=== PATIENT | female | born 1975 | race Caucasian/White ===

== ENCOUNTER 2018-04-01 23:47 | Inpatient (IN) ==
[2018-04-02] MEDS ORDERED: ACETAMINOPHEN 1000 MG/100 ML IV IV STA (00:10)
[2018-04-02] MEDS ORDERED: KETOROLAC TROMETHAMINE 15 MG/ML VIAL IV STA (00:10)
[2018-04-02] MEDS ORDERED: ONDANSETRON INJ 2 MG/ML 2 ML VIAL IV STA (00:10)
[2018-04-02] MEDS ORDERED: SODIUM CHLORIDE 0.9% 1000ML 1,000 ML IV SCH ×2 (00:15→02:00)
[2018-04-02 01:01] LABS: Basophils # (auto) 0.01 K/uL (0-0.2); Basophils % (auto) 0.1 %; Eosinophils # (auto) 0.06 K/uL (0-0.5); Eosinophils % (auto) 0.4 %; Hematocrit (blood only) 41.8 % (37-47); Hemoglobin 14.1 g/dL (12.0-16.0); Immature Granulocytes # (auto) 0.05 K/uL (0.00-0.02); Immature Granulocytes % (auto) 0.4 %; Lymphocytes # (auto) 0.97 K/uL (1.2-3.4); Mean Corpuscular Hgb Conc 33.7 g/dL (32-36); Mean Corpuscular Volume 95.9 fL (80-100); Mean Platelet Volume 9.5 fL (7.4-10.4); Monocytes # (auto) 1.25 K/uL (0.11-0.59); Neutrophils # (auto) 11.53 K/uL (1.4-6.5); Neutrophils % (auto) 83.1 %; Platelet Count 193 K/uL (130-400); RDW Coefficient of Variation 12.5 % (11.5-14.5); RDW Standard Deviation 43.9 fL (36.4-46.3); Red Blood Count 4.36 M/uL (4.2-5.4); White Blood Count 13.87 K/uL (4.8-10.8)
[2018-04-02 01:09] LABS: Appearance Urine Cloudy (Clear); Bacteria Urine Automated Negative (Negative); Bilirubin Urine Negative (Negative); Cast Urine Automated 0 /lpf (0-5); Color Urine Yellow; Epithelial Cell Urine Auto >30 /lpf (0-5); Glucose Urine UA Negative (Negative); Ketones Urine Negative (Negative); Leukocyte Esterase Urine Negative (Negative); Nitrite Urine Negative (Negative); Protein Urine Negative (Negative); Specific Gravity Urine 1.019 (1.000-1.030); Urobilinogen Urine Negative (Negative)
[2018-04-02 01:11] LABS: Partial Thromboplastin Time 25.2 Seconds (21.0-31.0); Prothrombin Time 10.4 Seconds (9.0-12.0)
[2018-04-02 01:19] LABS: Albumin Level 3.9 gm/dl (3.4-5.0); BUN Creatinine Ratio 10.2 (10-20); Calcium 9.2 mg/dl (8.5-10.1); Creatinine Clr Calc Pharmacy 104.2 ml/min; Est GFR (African American) 106.1; Est GFR (Non-African American) 91.6; Potassium 3.8 mmol/L (3.5-5.1)
[2018-04-02 01:22] LABS: Bilirubin,Total 0.4 mg/dl (0.2-1); Total Protein 7.9 gm/dl (6.4-8.2)
--- NOTE | 2018-04-02 04:08 | Emergency Department Note ---
History of Present Illness General Chief complaint: Fever Stated complaint: FEVER AND CHILLS/HAD SURGERY YESTERDAY Time Seen by Provider: 04/01/18 23:59 History of Present Illness Maximum Pain Intensity: 8 This is a 42-year-old female presenting to the emergency department with complaint of fever and generalized body aches for the past 12 hours. The patient states that she had a uterine ablation performed at the [facility] in [facility] yesterday. She evidently did very well after the procedure and was discharged home without any difficulty. The patient has been taking 800 mg ibuprofen tablets for pain control, but states that she has had a fever of 38 or 39 degrees for the past several hours. The patient is nauseated without vomiting. She does not have distinct point pain, and is describing more of a generalized pain. No difficulty breathing or using the bathroom is reported. The patient rates her overall discomfort a 7/10. Home Medications Home Medications Medication Instructions Recorded Confirmed Type Ashwaghanda Root 1 tab PO QAM 11/26/17 04/02/18 History acetaminophen [Tylenol Arthritis 1,300 mg PO QAM 11/26/17 04/02/18 History Pain] ascorbic acid-ascorbate sodium 500 mg PO QAM 11/26/17 04/02/18 History [Vitamin C With Zeynep Hips] biotin 1 mg PO QAM 11/26/17 04/02/18 History cholecalciferol (vitamin D3) 8,000 unit PO QAM 11/26/17 04/02/18 History [Vitamin D3] omega 2-vom-rar-fish oil [Fish Oil] 2,000 mg PO QAM 11/26/17 04/02/18 History Allergies Allergy/AdvReac Type Severity Reaction Status Date / Time hydrocodone AdvReac Intermediate NAUSEA Verified 04/02/18 01:11 codeine AdvReac Mild Nausea Verified 04/02/18 01:11 morphine AdvReac Unknown Unknown Verified 04/02/18 01:11 Past Med/Surg History Medical History Asthma EXERCISE INDUCED-HAS NOT USED PAST 6-12 MONTHS SOB (shortness of breath) ON OCC Anxiety Osteoarthritis HANDS/FEET 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 Strong teeth extracted Surgical History History of tonsillectomy History of esophagogastroduodenoscopy (EGD) one side History of colonoscopy Family History Unknown Family history of diabetes mellitus Father Family hx of colon cancer Social History Current Living Situation: Family and Other Feels Safe at Home: Yes Smoking Status: Current some day smoker Tobacco Type: cigarettes Cigarettes per Day: rare, social cigarette, heavier use 10+ years ago Hx Alcohol Use: Yes Alcohol type: beer Alcohol Intake Frequency: a few times a week Hx Substance Use: No Beliefs That Will Affect Care: None Visual Impairment: No Limitations Review of Systems A total of 10 systems reviewed and were otherwise negative Physical Exam Vital Signs Vital Signs - 24 hr 04/01/18 23:53 04/02/18 00:17 04/02/18 00:26 Temperature 38.1 C H Temperature Source Oral Sepsis Recent Fever Within 48 Hours Yes Sepsis Action Taken by Nursing No Action Required Pulse Rate 125 H 115 H 118 H Respiratory Rate 18 32 H 26 H Respiratory Effort / Characteristics Non-Labored Spontaneous Respiratory Depth Normal Respiratory Pattern Regular Blood Pressure 157/100 H 131/92 Blood Pressure Mean 119 105 Blood Pressure Position Sitting Pulse Oximetry 97 96 98 Oxygen Delivery Method Room Air Room Air 04/02/18 00:30 04/02/18 00:40 04/02/18 01:00 Temperature Temperature Source Sepsis Recent Fever Within 48 Hours Sepsis Action Taken by Nursing Pulse Rate 110 H 115 H 119 H Respiratory Rate 31 H 35 H 32 H Respiratory Effort / Characteristics Respiratory Depth Respiratory Pattern Blood Pressure 134/79 Blood Pressure Mean 97 Blood Pressure Position Pulse Oximetry 98 Oxygen Delivery Method 04/02/18 01:34 04/02/18 01:40 04/02/18 02:00 Temperature Temperature Source Sepsis Recent Fever Within 48 Hours Sepsis Action Taken by Nursing Pulse Rate 168 H 112 H 107 H Respiratory Rate 30 H 26 H Respiratory Effort / Characteristics Respiratory Depth Respiratory Pattern Blood Pressure 119/65 Blood Pressure Mean 83 Blood Pressure Position Pulse Oximetry 95 96 Oxygen Delivery Method Room Air 04/02/18 02:20 04/02/18 02:44 04/02/18 03:00 Temperature 37.3 C Temperature Source Sepsis Recent Fever Within 48 Hours Sepsis Action Taken by Nursing Pulse Rate 108 H 112 H 105 H Respiratory Rate 20 20 22 Respiratory Effort / Characteristics Respiratory Depth Respiratory Pattern Blood Pressure 106/61 Blood Pressure Mean 76 Blood Pressure Position Pulse Oximetry 94 96 94 Oxygen Delivery Method 04/02/18 03:20 04/02/18 03:30 04/02/18 03:40 Temperature Temperature Source Sepsis Recent Fever Within 48 Hours Sepsis Action Taken by Nursing Pulse Rate 107 H 107 H 115 H Respiratory Rate 20 22 22 Respiratory Effort / Characteristics Respiratory Depth Respiratory Pattern Blood Pressure 99/59 L Blood Pressure Mean 72 Blood Pressure Position Pulse Oximetry 93 94 Oxygen Delivery Method Room Air VITALS: Vitals are noted on the nurse's note and reviewed by myself. Vital signs with tachycardia and fever GENERAL: White female who appears ill on examination. She is answering questions appropriately. HEAD: Normocephalic atraumatic. EYES: Pupils equal round and reactive to light and accommodation. Conjunctivae without injection, sclerae without icterus. Extraocular movements intact. NOSE: Patent, turbinates without inflammation or discharge. MOUTH: Mucous membranes moist. Tonsils are not enlarged. Pharynx without erythema, blood, or exudate. Uvula midline. Airway patent. NECK: Supple without nuchal rigidity. No lymphadenopathy. No thyromegaly. Cervical spine is nontender. HEART: Regular rate and rhythm without murmurs gallops or rubs. LUNGS: Clear to auscultation bilaterally without wheezes, rales or rhonchi. No retractions or accessory muscle use. ABDOMEN: Positive normal bowel sounds x 4. Soft, nontender, without masses or organomegaly. No guarding or rebound tenderness. MUSCULOSKELETAL: No muscle atrophy, erythema, or edema noted. Full range of motion in all extremities. NEURO: Patient was alert and oriented to person place and time. CN II through XII grossly intact. SKIN: The skin was without rashes, erythema, edema, or bruising. Capillary refill less than 2 seconds. Course Administered Medications Discontinued Medications Acetaminophen (Ofirmev) 1,000 mg IV NOW STA Stop: 04/02/18 00:11 Last Admin: 04/02/18 01:07 Dose: 1,000 mg Sodium Chloride (Nss 1000ml) 1,000 mls @ 999 mls/hr IV .Q1H1M KENY Stop: 04/02/18 01:15 Last Infusion: 04/02/18 01:57 Dose: 0 mls/hr Admin: 04/02/18 01:04 Dose: 999 mls/hr Sodium Chloride (Nss 1000ml) 1,000 mls @ 999 mls/hr IV .Q1H1M KENY Stop: 04/02/18 03:00 Last Infusion: 04/02/18 03:00 Dose: 0 mls/hr Admin: 04/02/18 01:57 Dose: 999 mls/hr Ketorolac Tromethamine (Toradol) 15 mg IV NOW STA Stop: 04/02/18 00:11 Last Admin: 04/02/18 01:04 Dose: 15 mg Ondansetron HCl (Zofran) 4 mg IV NOW STA Stop: 04/02/18 00:11 Last Admin: 04/02/18 01:06 Dose: 4 mg Medical Decision Making Differential Diagnosis Differential diagnosis: Etiologies such as postoperative infection, endometritis, abscess, viral syndrome, otitis, pharyngitis, pneumonia, influenza, meningitis, urinary tract infection, septic arthritis, soft tissue infectious process, intra-abdominal process, sepsis, bacteremia, as well as others were entertained. Laboratory Data Result diagrams: 04/02/18 00:50 04/02/18 00:50 Lab Results 04/02/18 04/02/18 04/02/18 Range/Units 00:22 00:48 00:50 WBC 13.87 H (4.8-10.8) K/uL RBC 4.36 (4.2-5.4) M/uL Hgb 14.1 (12.0-16.0) g/dL Hct 41.8 (37-47) % MCV 95.9 (80-100) fL MCH 32.3 (25-34) pg MCHC 33.7 (32-36) g/dL RDW Std Deviation 43.9 (36.4-46.3) fL RDW Coeff of Michael 12.5 (11.5-14.5) % Plt Count 193 (130-400) K/uL MPV 9.5 (7.4-10.4) fL Immature Gran % (Auto) 0.4 % Neut % (Auto) 83.1 % Lymph % (Auto) 7.0 % Reagan % (Auto) 9.0 % Eos % (Auto) 0.4 % Baso % (Auto) 0.1 % Immature Gran # (Auto) 0.05 H (0.00-0.02) K/uL Neut # (Auto) 11.53 H (1.4-6.5) K/uL Lymph # (Auto) 0.97 L (1.2-3.4) K/uL Reagan # (Auto) 1.25 H (0.11-0.59) K/uL Eos # (Auto) 0.06 (0-0.5) K/uL Baso # (Auto) 0.01 (0-0.2) K/uL PT (9.0-12.0) Seconds INR (0.9-1.1) APTT (21.0-31.0) Seconds PTT Ratio Sodium (136-145) mmol/L Potassium (3.5-5.1) mmol/L Chloride (98-107) mmol/L Carbon Dioxide (21-32) mmol/L Anion Gap (3-11) BUN (7-18) mg/dl Creatinine (0.6-1.2) mg/dl Est Cr Clr Drug Dosing ml/min Est GFR ( Amer) Est GFR (Non-Af Amer) BUN/Creatinine Ratio (10-20) Glucose (70-99) mg/dl Lactate (0.4-2.0) mmol/L Calcium (8.5-10.1) mg/dl Total Bilirubin (0.2-1) mg/dl AST (15-37) U/L ALT (12-78) U/L Alkaline Phosphatase (45-117) U/L Total Protein (6.4-8.2) gm/dl Albumin (3.4-5.0) gm/dl Globulin (2.5-4.0) gm/dl Albumin/Globulin Ratio (0.9-2) Lipase (73-393) U/L Urine Color Yellow Urine Appearance Cloudy H (Clear) Urine pH 8.0 H (4.5-7.5) Ur Specific [place] 1.019 (1.000-1.030) Urine Protein Negative (Negative) Urine Glucose (UA) Negative (Negative) Urine Ketones Negative (Negative) Urine Blood 1+ H (Negative) Urine Nitrite Negative (Negative) Urine Bilirubin Negative (Negative) Urine Urobilinogen Negative (Negative) Ur Leukocyte Esterase Negative (Negative) Urine WBC (Auto) 1-5 (0-5) /hpf Urine RBC (Auto) 5-10 H (0-4) /hpf U Hyaline Cast (Auto) 0 (0-5) /lpf U Epithel Cells (Auto) >30 H (0-5) /lpf Urine Bacteria (Auto) Negative (Negative) Influenza Type A Ag Neg for Influ A (Neg) Influenza Type B Ag Neg for Influ B (Neg) 04/02/18 04/02/18 04/02/18 Range/Units 00:50 00:50 00:50 WBC (4.8-10.8) K/uL RBC (4.2-5.4) M/uL Hgb (12.0-16.0) g/dL Hct (37-47) % MCV (80-100) fL MCH (25-34) pg MCHC (32-36) g/dL RDW Std Deviation (36.4-46.3) fL RDW Coeff of Michael (11.5-14.5) % Plt Count (130-400) K/uL MPV (7.4-10.4) fL Immature Gran % (Auto) % Neut % (Auto) % Lymph % (Auto) % Reagan % (Auto) % Eos % (Auto) % Baso % (Auto) % Immature Gran # (Auto) (0.00-0.02) K/uL Neut # (Auto) (1.4-6.5) K/uL Lymph # (Auto) (1.2-3.4) K/uL Reagan # (Auto) (0.11-0.59) K/uL Eos # (Auto) (0-0.5) K/uL Baso # (Auto) (0-0.2) K/uL PT 10.4 (9.0-12.0) Seconds INR 1.0 (0.9-1.1) APTT 25.2 (21.0-31.0) Seconds PTT Ratio 1.0 Sodium 137 (136-145) mmol/L Potassium 3.8 (3.5-5.1) mmol/L Chloride 105 (98-107) mmol/L Carbon Dioxide 23 (21-32) mmol/L Anion Gap 8.0 (3-11) BUN 8 (7-18) mg/dl Creatinine 0.80 (0.6-1.2) mg/dl Est Cr Clr Drug Dosing 104.2 ml/min Est GFR ( Amer) 106.1 Est GFR (Non-Af Amer) 91.6 BUN/Creatinine Ratio 10.2 (10-20) Glucose 108 H (70-99) mg/dl Lactate 2.2 H* (0.4-2.0) mmol/L Calcium 9.2 (8.5-10.1) mg/dl Total Bilirubin 0.4 (0.2-1) mg/dl AST 18 (15-37) U/L ALT 32 (12-78) U/L Alkaline Phosphatase 53 (45-117) U/L Total Protein 7.9 (6.4-8.2) gm/dl Albumin 3.9 (3.4-5.0) gm/dl Globulin 4.0 (2.5-4.0) gm/dl Albumin/Globulin Ratio 1.0 (0.9-2) Lipase 87 (73-393) U/L Urine Color Urine Appearance (Clear) Urine pH (4.5-7.5) Ur Specific [place] (1.000-1.030) Urine Protein (Negative) Urine Glucose (UA) (Negative) Urine Ketones (Negative) Urine Blood (Negative) Urine Nitrite (Negative) Urine Bilirubin (Negative) Urine Urobilinogen (Negative) Ur Leukocyte Esterase (Negative) Urine WBC (Auto) (0-5) /hpf Urine RBC (Auto) (0-4) /hpf U Hyaline Cast (Auto) (0-5) /lpf U Epithel Cells (Auto) (0-5) /lpf Urine Bacteria (Auto) (Negative) Influenza Type A Ag (Neg) Influenza Type B Ag (Neg) 04/02/18 Range/Units 02:51 WBC (4.8-10.8) K/uL RBC (4.2-5.4) M/uL Hgb (12.0-16.0) g/dL Hct (37-47) % MCV (80-100) fL MCH (25-34) pg MCHC (32-36) g/dL RDW Std Deviation (36.4-46.3) fL RDW Coeff of Michael (11.5-14.5) % Plt Count (130-400) K/uL MPV (7.4-10.4) fL Immature Gran % (Auto) % Neut % (Auto) % Lymph % (Auto) % Reagan % (Auto) % Eos % (Auto) % Baso % (Auto) % Immature Gran # (Auto) (0.00-0.02) K/uL Neut # (Auto) (1.4-6.5) K/uL Lymph # (Auto) (1.2-3.4) K/uL Reagan # (Auto) (0.11-0.59) K/uL Eos # (Auto) (0-0.5) K/uL Baso # (Auto) (0-0.2) K/uL PT (9.0-12.0) Seconds INR (0.9-1.1) APTT (21.0-31.0) Seconds PTT Ratio Sodium (136-145) mmol/L Potassium (3.5-5.1) mmol/L Chloride (98-107) mmol/L Carbon Dioxide (21-32) mmol/L Anion Gap (3-11) BUN (7-18) mg/dl Creatinine (0.6-1.2) mg/dl Est Cr Clr Drug Dosing ml/min Est GFR ( Amer) Est GFR (Non-Af Amer) BUN/Creatinine Ratio (10-20) Glucose (70-99) mg/dl Lactate 1.1 (0.4-2.0) mmol/L Calcium (8.5-10.1) mg/dl Total Bilirubin (0.2-1) mg/dl AST (15-37) U/L ALT (12-78) U/L Alkaline Phosphatase (45-117) U/L Total Protein (6.4-8.2) gm/dl Albumin (3.4-5.0) gm/dl Globulin (2.5-4.0) gm/dl Albumin/Globulin Ratio (0.9-2) Lipase (73-393) U/L Urine Color Urine Appearance (Clear) Urine pH (4.5-7.5) Ur Specific [place] (1.000-1.030) Urine Protein (Negative) Urine Glucose (UA) (Negative) Urine Ketones (Negative) Urine Blood (Negative) Urine Nitrite (Negative) Urine Bilirubin (Negative) Urine Urobilinogen (Negative) Ur Leukocyte Esterase (Negative) Urine WBC (Auto) (0-5) /hpf Urine RBC (Auto) (0-4) /hpf U Hyaline Cast (Auto) (0-5) /lpf U Epithel Cells (Auto) (0-5) /lpf Urine Bacteria (Auto) (Negative) Influenza Type A Ag (Neg) Influenza Type B Ag (Neg) MDM Narrative Physical exam and history were performed. Nursing notes, EMR, and Medication List were personally reviewed. Patient appears to have fever bringing her to the emergency department this evening. The patient had a uterine ablation performed as an outpatient yesterday. On examination she does have a fever and tachycardia. She does not have significant abdominal tenderness on palpation, and describes more of a generalized body pain. IV access was established and labs were obtained. The patient was hydrated with 2 L normal saline. Blood cultures x2 were gathered. The patient was given IV Toradol and IV Tylenol, as well as IV Zofran for her symptoms. The patient's blood work is as above and was reviewed. She has an elevated white blood cell count of greater than 13,000. She does not have a significant anemia or gross electrolyte imbalance. INR is 1.0. Urine is without obvious infection. Chest x-ray was reviewed by myself and my attending as showing no acute obvious process. The patient's lactic acid is elevated at 2.2. The patient was reevaluated multiple times throughout the course of her stay. A repeat lactic was performed after hydration, and did normalize to 1.1. The patient remains persistently tachycardic despite fluids. Her temperature has normalized, and she does feel improved after hydration and medication. Out of concern for the patient's status I did speak with the on-call [facility] SALES CLERK, Dr. Cain. Dr. Cain is highly suspicious for acute endometritis secondary to the patient's recent ablation procedure. He will start her on ampicillin and gentamicin, and admit her to the OB floor for further management. Please see SALES CLERK's dictation for further patient course, plan, and disposition. The chart was completed utilizing [employer] Speech Voice Recognition Software. Grammatical errors, random word insertions, pronoun errors, and incomplete sentences are an occasional consequence of this system due to software limitations, ambient noise, and hardware issues. Any formal questions or concerns about the content, text, or information contained within the body of this dictation should be directly addressed to the provider for clarification. . Impression & Plan Acute endometritis Discharge Plan Visit Data Chief Complaint: Fever Stated Complaint: FEVER AND CHILLS/HAD SURGERY YESTERDAY ED Provider: Carlos Blandon ED Midlevel Provider: Freedom Beltran Discharge Problem: Acute endometritis Forms Stand Alone Forms: My [facility] Prescriptions Prescriptions: No Action omega 2-hgk-odx-fish oil [Fish Oil] 1,000 mg (120 mg-180 mg) Capsule 2,000 mg PO QAM RF: 0 cholecalciferol (vitamin D3) [Vitamin D3] 4,000 unit Capsule 8,000 unit PO QAM RF: 0 biotin 1 mg Capsule 1 mg PO QAM RF: 0 ascorbic acid-ascorbate sodium [Vitamin C With Zeynep Hips] 500 mg Tablet, Chewable 500 mg PO QAM RF: 0 Ashwaghanda Root 1 tab PO QAM RF: 0 acetaminophen [Tylenol Arthritis Pain] 650 mg Tablet Extended Release 1,300 mg PO QAM RF: 0 Referrals Referrals: Santiago Celeste [Primary Care Provider] -
[2018-04-02] MEDS ORDERED: AMPICILLIN SOD 1 GM VIAL IV SCH (04:54)
[2018-04-02] MEDS ORDERED: GENTAMICIN CONSULT ACTIVE PRN (05:38)
[2018-04-02] MEDS ORDERED: AMPICILLIN 2,000 MG in SODIUM CHLOR 0.9% AD-VAN 100 ML IV ONE (05:45)
[2018-04-02] MEDS: LACTATED RINGER'S 1,000 ML IV SCH ×2 (05:58→16:23)
[2018-04-02] MEDS ORDERED: ONDANSETRON INJ 2 MG/ML 2 ML VIAL IV PRN (06:25)
[2018-04-02] MEDS ORDERED: ONDANSETRON INJ 2 MG/ML 2 ML VIAL ONE (06:26)
--- NOTE | 2018-04-02 06:38 | XRay Report ---
XR chest 2V routine CLINICAL HISTORY: post op fever fever COMPARISON STUDY: 07/24/2007 FINDINGS: The bones soft tissues and hemidiaphragms are normal. The cardiomediastinal silhouette is n ormal. The lungs are clear. The pulmonary vasculature is normal. IMPRESSION: Negative chest. The above report was generated using voice recognition software. It may contain grammatical, syntax or spelling errors. Electronically signed by: Pavan Garza M.D. 04/02/2018 6:36 AM
[2018-04-02] MEDS ORDERED: GENTAMICIN SULFATE 360 MG in DEXTROSE 5% 100 ML IV ONE (07:00)
[2018-04-02] MEDS: METOCLOPRAMIDE HCL INJ 5 MG/ML 2 ML VIAL IV PRN (07:39)
[2018-04-02] MEDS: IBUPROFEN 600 MG TAB PO PRN ×3 (07:52→22:22)
[2018-04-02] MEDS: AMPICILLIN 1,000 MG in SODIUM CHLOR 0.9% AD-VAN 50 ML IV SCH ×4 (09:40→21:59)
--- NOTE | 2018-04-02 09:51 | Obstetrical Progress Note ---
Date of Service April 02, 2018 Assessment & Plan (1) Acute endometritis: 42 yo s/p EA on 03/31/18 now with fever/ chills/ elevated WBCC Admitted for endometritis, on IV AB Spiking fevers Will add Clindamycin to Amp and Gent and continue for 48 hours She agrees with plan All questions were answered Subjective Patient is seen and examined Admitted by Dr. Cain this morning from ER for endometritis She is a 42 yo s/p Endometrial ablation on 03/31/[address] Alexandre Was d/c'd home same day She was fine until last night at around 7 pm when she started to have fever/ chills She came to ER and was admitted for endometritis and started on IV Amp+ Gent She had temp on 39.1 and then 38.1 this morning and was nauseaus She received Zofran, Reglan and Motrin and she feels better now Pain is monimal as lower back cramping No VB Minimal d/c+ She ate breakfast and kept it down Vital Signs Temp Pulse Pulse Resp BP BP Pulse Ox 04/02/18 04:55 37.0 C 104 H 16 121/86 98 04/02/18 04:33 37.1 C 106 H 19 121/67 96 04/02/18 03:40 115 H 22 04/02/18 03:30 107 H 22 99/59 L 94 04/02/18 03:20 107 H 20 93 04/02/18 03:00 105 H 22 106/61 94 04/02/18 02:44 37.3 C 112 H 20 96 04/02/18 02:20 108 H 20 94 04/02/18 02:00 107 H 26 H 119/65 96 04/02/18 01:40 112 H 30 H 95 04/02/18 01:34 168 H 04/02/18 01:00 119 H 32 H 04/02/18 00:40 115 H 35 H 04/02/18 00:30 110 H 31 H 134/79 98 04/02/18 00:26 118 H 26 H 98 04/02/18 00:17 115 H 32 H 131/92 96 04/01/18 23:53 38.1 C H 125 H 18 157/100 H 97 Intake and Output 04/01/18 04/02/18 04/02/18 22:59 06:59 14:59 Intake Total 2118.75 / 2118.75 143.75 / 143.75 Output Total 500 / 500 Balance 1618.75 / 1618.75 143.75 / 143.75 Intake: IV 2118.75 / 2118.75 143.75 / 143.75 Ampicillin 2,000 mg In Nss Ad- 100 / 100 Van 100 ml @ 200 mls/hr IV NOW ONE Rx#:[id number] Lr 1,000 ml @ 125 mls/hr IV . 18.75 / 18.75 143.75 / 143.75 Q8H KENY Rx#:[id number] Nss 1000ML 1,000 ml @ 999 mls/ 2000 / 2000 hr IV .Q1H1M KENY Rx#:[id number] Output: Urine 500 / 500 Other: Weight 96.3 kg 04/02/18 04/02/18 04/02/18 Range/Units 02:51 00:50 00:50 WBC (4.8-10.8) K/uL RBC (4.2-5.4) M/uL Hgb (12.0-16.0) g/dL Hct (37-47) % MCV (80-100) fL MCH (25-34) pg MCHC (32-36) g/dL RDW Std Deviation (36.4-46.3) fL RDW Coeff of Michael (11.5-14.5) % Plt Count (130-400) K/uL MPV (7.4-10.4) fL Immature Gran % (Auto) % Neut % (Auto) % Lymph % (Auto) % [place] % (Auto) % Eos % (Auto) % Baso % (Auto) % Immature Gran # (Auto) (0.00-0.02) K/uL Neut # (Auto) (1.4-6.5) K/uL Lymph # (Auto) (1.2-3.4) K/uL [place] # (Auto) (0.11-0.59) K/uL Eos # (Auto) (0-0.5) K/uL Baso # (Auto) (0-0.2) K/uL PT (9.0-12.0) Seconds INR (0.9-1.1) APTT (21.0-31.0) Seconds PTT Ratio Sodium 137 (136-145) mmol/L Potassium 3.8 (3.5-5.1) mmol/L Chloride 105 (98-107) mmol/L Carbon Dioxide 23 (21-32) mmol/L Anion Gap 8.0 (3-11) BUN 8 (7-18) mg/dl Creatinine 0.80 (0.6-1.2) mg/dl Est Cr Clr Drug Dosing 104.2 ml/min Est GFR ( Amer) 106.1 Est GFR (Non-Af Amer) 91.6 BUN/Creatinine Ratio 10.2 (10-20) Glucose 108 H (70-99) mg/dl Lactate 1.1 2.2 H* (0.4-2.0) mmol/L Calcium 9.2 (8.5-10.1) mg/dl Total Bilirubin 0.4 (0.2-1) mg/dl AST 18 (15-37) U/L ALT 32 (12-78) U/L Alkaline Phosphatase 53 (45-117) U/L Total Protein 7.9 (6.4-8.2) gm/dl Albumin 3.9 (3.4-5.0) gm/dl Globulin 4.0 (2.5-4.0) gm/dl Albumin/Globulin Ratio 1.0 (0.9-2) Lipase 87 (73-393) U/L Urine Color Urine Appearance (Clear) Urine pH (4.5-7.5) Ur Specific [place] (1.000-1.030) Urine Protein (Negative) Urine Glucose (UA) (Negative) Urine Ketones (Negative) Urine Blood (Negative) Urine Nitrite (Negative) Urine Bilirubin (Negative) Urine Urobilinogen (Negative) Ur Leukocyte Esterase (Negative) Urine WBC (Auto) (0-5) /hpf Urine RBC (Auto) (0-4) /hpf U Hyaline Cast (Auto) (0-5) /lpf U Epithel Cells (Auto) (0-5) /lpf Urine Bacteria (Auto) (Negative) Influenza Type A Ag (Neg) Influenza Type B Ag (Neg) 04/02/18 04/02/18 04/02/18 Range/Units 00:50 00:50 00:48 WBC 13.87 H (4.8-10.8) K/uL RBC 4.36 (4.2-5.4) M/uL Hgb 14.1 (12.0-16.0) g/dL Hct 41.8 (37-47) % MCV 95.9 (80-100) fL MCH 32.3 (25-34) pg MCHC 33.7 (32-36) g/dL RDW Std Deviation 43.9 (36.4-46.3) fL RDW Coeff of Michael 12.5 (11.5-14.5) % Plt Count 193 (130-400) K/uL MPV 9.5 (7.4-10.4) fL Immature Gran % (Auto) 0.4 % Neut % (Auto) 83.1 % Lymph % (Auto) 7.0 % [place] % (Auto) 9.0 % Eos % (Auto) 0.4 % Baso % (Auto) 0.1 % Immature Gran # (Auto) 0.05 H (0.00-0.02) K/uL Neut # (Auto) 11.53 H (1.4-6.5) K/uL Lymph # (Auto) 0.97 L (1.2-3.4) K/uL [place] # (Auto) 1.25 H (0.11-0.59) K/uL Eos # (Auto) 0.06 (0-0.5) K/uL Baso # (Auto) 0.01 (0-0.2) K/uL PT 10.4 (9.0-12.0) Seconds INR 1.0 (0.9-1.1) APTT 25.2 (21.0-31.0) Seconds PTT Ratio 1.0 Sodium (136-145) mmol/L Potassium (3.5-5.1) mmol/L Chloride (98-107) mmol/L Carbon Dioxide (21-32) mmol/L Anion Gap (3-11) BUN (7-18) mg/dl Creatinine (0.6-1.2) mg/dl Est Cr Clr Drug Dosing ml/min Est GFR ( Amer) Est GFR (Non-Af Amer) BUN/Creatinine Ratio (10-20) Glucose (70-99) mg/dl Lactate (0.4-2.0) mmol/L Calcium (8.5-10.1) mg/dl Total Bilirubin (0.2-1) mg/dl AST (15-37) U/L ALT (12-78) U/L Alkaline Phosphatase (45-117) U/L Total Protein (6.4-8.2) gm/dl Albumin (3.4-5.0) gm/dl Globulin (2.5-4.0) gm/dl Albumin/Globulin Ratio (0.9-2) Lipase (73-393) U/L Urine Color Yellow Urine Appearance Cloudy H (Clear) Urine pH 8.0 H (4.5-7.5) Ur Specific [place] 1.019 (1.000-1.030) Urine Protein Negative (Negative) Urine Glucose (UA) Negative (Negative) Urine Ketones Negative (Negative) Urine Blood 1+ H (Negative) Urine Nitrite Negative (Negative) Urine Bilirubin Negative (Negative) Urine Urobilinogen Negative (Negative) Ur Leukocyte Esterase Negative (Negative) Urine WBC (Auto) 1-5 (0-5) /hpf Urine RBC (Auto) 5-10 H (0-4) /hpf U Hyaline Cast (Auto) 0 (0-5) /lpf U Epithel Cells (Auto) >30 H (0-5) /lpf Urine Bacteria (Auto) Negative (Negative) Influenza Type A Ag (Neg) Influenza Type B Ag (Neg) 04/02/18 Range/Units 00:22 WBC (4.8-10.8) K/uL RBC (4.2-5.4) M/uL Hgb (12.0-16.0) g/dL Hct (37-47) % MCV (80-100) fL MCH (25-34) pg MCHC (32-36) g/dL RDW Std Deviation (36.4-46.3) fL RDW Coeff of Michael (11.5-14.5) % Plt Count (130-400) K/uL MPV (7.4-10.4) fL Immature Gran % (Auto) % Neut % (Auto) % Lymph % (Auto) % [place] % (Auto) % Eos % (Auto) % Baso % (Auto) % Immature Gran # (Auto) (0.00-0.02) K/uL Neut # (Auto) (1.4-6.5) K/uL Lymph # (Auto) (1.2-3.4) K/uL [place] # (Auto) (0.11-0.59) K/uL Eos # (Auto) (0-0.5) K/uL Baso # (Auto) (0-0.2) K/uL PT (9.0-12.0) Seconds INR (0.9-1.1) APTT (21.0-31.0) Seconds PTT Ratio Sodium (136-145) mmol/L Potassium (3.5-5.1) mmol/L Chloride (98-107) mmol/L Carbon Dioxide (21-32) mmol/L Anion Gap (3-11) BUN (7-18) mg/dl Creatinine (0.6-1.2) mg/dl Est Cr Clr Drug Dosing ml/min Est GFR ( Amer) Est GFR (Non-Af Amer) BUN/Creatinine Ratio (10-20) Glucose (70-99) mg/dl Lactate (0.4-2.0) mmol/L Calcium (8.5-10.1) mg/dl Total Bilirubin (0.2-1) mg/dl AST (15-37) U/L ALT (12-78) U/L Alkaline Phosphatase (45-117) U/L Total Protein (6.4-8.2) gm/dl Albumin (3.4-5.0) gm/dl Globulin (2.5-4.0) gm/dl Albumin/Globulin Ratio (0.9-2) Lipase (73-393) U/L Urine Color Urine Appearance (Clear) Urine pH (4.5-7.5) Ur Specific [place] (1.000-1.030) Urine Protein (Negative) Urine Glucose (UA) (Negative) Urine Ketones (Negative) Urine Blood (Negative) Urine Nitrite (Negative) Urine Bilirubin (Negative) Urine Urobilinogen (Negative) Ur Leukocyte Esterase (Negative) Urine WBC (Auto) (0-5) /hpf Urine RBC (Auto) (0-4) /hpf U Hyaline Cast (Auto) (0-5) /lpf U Epithel Cells (Auto) (0-5) /lpf Urine Bacteria (Auto) (Negative) Influenza Type A Ag Neg for Influ A (Neg) Influenza Type B Ag Neg for Influ B (Neg) Physical Exam 2 Vital Signs (Past 24 Hours): Last Vital Signs Temp 37.0 C 04/02/18 04:55 Pulse 104 H 04/02/18 04:55 Resp 16 04/02/18 04:55 BP 121/86 04/02/18 04:55 Pulse Ox 98 04/02/18 04:55 Constitutional: WD/WN, vitals as above well nourished and comfortable Gastrointestinal (Abdomen): Abd: soft, NT, ND Musculoskeletal: Ext. NT NO edema
--- NOTE | 2018-04-02 09:55 | History & Physical Report ---
Date of Service April 02, 2018 Assessment & Plan (1) Acute endometritis: 42 yo s/p EA on 03/31/18 now with fever/ chills/ elevated WBCC Admitted for endometritis, on IV AB Spiking fevers Will add Clindamycin to Amp and Gent and continue for 48 hours She agrees with plan All questions were answered History of Present Illness Primary Care Provider: Santiago Celeste Patient is seen and examined Admitted by Dr. Cain this morning from ER for endometritis She is a 42 yo s/p Endometrial ablation on 03/31/[address] Alexandre Was d/c'd home same day She was fine until last night at around 7 pm when she started to have fever/ chills She came to ER and was admitted for endometritis and started on IV Amp+ Gent She had temp on 39.1 and then 38.1 this morning and was nauseaus She received Zofran, Reglan and Motrin and she feels better now Pain is monimal as lower back cramping No VB Minimal d/c+ She ate breakfast and kept it down ( Physical Exam Vital Signs (Past 24 Hours): Last Vital Signs Temp 37.0 C 04/02/18 04:55 Pulse 104 H 04/02/18 04:55 Resp 16 04/02/18 04:55 BP 121/86 04/02/18 04:55 Pulse Ox 98 04/02/18 04:55 Constitutional: WD/WN, vitals as above well nourished and comfortable Gastrointestinal (Abdomen): Abd: soft, NT, ND Musculoskeletal: Ext. NT NO edema Allergies Allergy/AdvReac Type Severity Reaction Status Date / Time hydrocodone AdvReac Intermediate NAUSEA Verified 04/02/18 01:11 codeine AdvReac Mild Nausea Verified 04/02/18 01:11 morphine AdvReac Unknown Unknown Verified 04/02/18 01:11 Home Medications Home Medications Medication Instructions Recorded Confirmed Type Ashwinanda Root 1 tab PO QAM 11/26/17 04/02/18 History acetaminophen [Tylenol Arthritis 1,300 mg PO QAM 11/26/17 04/02/18 History Pain] ascorbic acid-ascorbate sodium 500 mg PO QAM 11/26/17 04/02/18 History [Vitamin C With Zeynep Hips] biotin 1 mg PO QAM 11/26/17 04/02/18 History cholecalciferol (vitamin D3) 8,000 unit PO QAM 11/26/17 04/02/18 History [Vitamin D3] omega [id number] oil [Fish Oil] 2,000 mg PO QAM 11/26/17 04/02/18 History Patient History Medical History Asthma EXERCISE INDUCED-HAS NOT USED PAST 6-12 MONTHS SOB (shortness of breath) ON OCC Anxiety Osteoarthritis HANDS/FEET 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 [place] teeth extracted Social History Current Living Situation: Family Other Information That Helps Us Care for You: No Feels Safe at Home: Yes Safety Concerns: Feels Safe At This Time Smoking Status: Light tobacco smoker Tobacco Type: cigarettes Do You Dip or Chew Tobacco: No Second Hand Exposure: No Tobacco Cessation Education Requested by Patient: No Hx Alcohol Use: Yes Alcohol type: beer, wine and hard liquor Alcohol Intake Frequency: a few times a week Hx Substance Use: No Beliefs That Will Affect Care: None Preferred Language: Macedonian Communication Ability: Effective Portal Developer Required: No Physical Exam 2 Vital Signs (Past 24 Hours): Last Vital Signs Temp 37.0 C 04/02/18 04:55 Pulse 104 H 04/02/18 04:55 Resp 16 04/02/18 04:55 BP 121/86 04/02/18 04:55 Pulse Ox 98 04/02/18 04:55
[2018-04-02] MEDS: CLINDAMYCIN 900 MG in DEXTROSE 5% 100 ML IV SCH ×2 (10:23→18:34)
[2018-04-02] MEDS: ACETAMINOPHEN 325 MG TAB PO PRN ×2 (11:18→17:36)
--- NOTE | 2018-04-02 11:27 | Gynecologic Progress Note ---
Date of Service April 02, 2018 Assessment & Plan (1) Acute endometritis: 42 yo s/p EA on 03/31/18 now with fever/ chills/ elevated WBC Admitted for endometritis Currently on IV Antibiotics Continue IV antibiotics until afebrile x 24 hours then possible transition to oral antibiotics Will continue to monitor All questions were answered Subjective 42 yo s/p Diagnostic hysteroscopy and novasure endometrial ablation on 03/31/2018 admitted for acute endometritis. Currently on IV Antibiotics. Pt reports feeling warm as if she is about to get another fever. Pt also reports mild crampy pelvic pain. Denies vaginal bleeding or spotting. Nausea resolved. Denies vomiting, SOB or CP. Physical Exam 2 Vital Signs (Past 24 Hours): Last Vital Signs Temp 37.1 C 04/02/18 10:29 Pulse 122 H 04/02/18 07:50 Resp 20 04/02/18 07:50 BP 123/72 04/02/18 07:50 Pulse Ox 95 04/02/18 07:50 Respiratory: normal respiratory effort, lungs clear to auscultation Cardiovascular: Rate/Rhythm: regular rate and + tachycardic Gastrointestinal (Abdomen): Inspection/Auscultation: normal bowel sounds Percussion/Palpation: + abdomen tender and abdomen soft
[2018-04-02] MEDS ORDERED: LACTATED RINGER'S 250 ML IV ONE (15:15)
[2018-04-03] MEDS: AMPICILLIN 1,000 MG in SODIUM CHLOR 0.9% AD-VAN 50 ML IV SCH ×7 (01:46→21:26)
[2018-04-03] MEDS: CLINDAMYCIN 900 MG in DEXTROSE 5% 100 ML IV SCH ×3 (02:21→18:32)
[2018-04-03] MEDS: LACTATED RINGER'S 1,000 ML IV SCH ×2 (05:48→17:46)
[2018-04-03] MEDS: GENTAMICIN SULFATE 360 MG in DEXTROSE 5% 100 ML IV SCH (06:31)
[2018-04-03] MEDS: IBUPROFEN 600 MG TAB PO PRN ×2 (09:39→15:24)
--- NOTE | 2018-04-03 09:57 | Obstetrical Progress Note ---
Date of Service April 03, 2018 Subjective Patient is seen and examined. She feels better other than her recurrent JOSHI's They come on go for the last 2 weeks No change in vision/ numbness or tingling She just Motrin for it and it usually helps No abdominal pain Ambulating without dizziness Voiding without difficulty Tolerating regular diet with out N&V No bleeding, d/c is minimal No fever/ chills/ CP/ SOB/ N&V/ Leg pain Vital Signs Temp Pulse Pulse Resp BP BP Pulse Ox 04/03/18 07:15 37 C 87 20 116/74 95 04/03/18 03:45 36.4 C L 83 16 116/76 94 04/02/18 23:20 37.3 C 95 H 18 110/73 92 04/02/18 22:22 37.7 C H 04/02/18 20:05 37.2 C 99 H 20 104/68 95 04/02/18 17:35 37.6 C H 04/02/18 16:29 36.9 C 04/02/18 15:30 37.9 C H 103 H 18 109/71 95 04/02/18 14:43 39 C H 04/02/18 14:30 39.3 C H 04/02/18 13:30 38.5 C H 04/02/18 11:15 36.9 C 108 H 20 120/79 97 04/02/18 10:29 37.1 C Intake and Output 04/02/18 04/03/18 04/03/18 22:59 06:59 14:59 Intake Total 1548.650 / 4307.837 7790.666 / 1097.666 328.583 / 328.583 Output Total 2125 / 2125 700 / 700 Balance -576.350 / -576.350 397.666 / 397.666 328.583 / 328.583 Intake: IV 1028.650 / 1028.650 797.666 / 797.666 328.583 / 328.583 Ampicillin 1,000 mg In Nss Ad- 50 / 50 100 / 100 30 / 30 Van 50 ml @ 100 mls/hr IV Q4H KENY Rx#:[id number] Cleocin 900 mg In D5w 100 ml @ 106 / 106 106 / 106 100 mls/hr IV Q8H KENY Rx#: [id number] Gentamicin Sulfate 360 mg In D5 109 / 109 100 ml @ 100 mls/hr IV Q24H KENY Rx#:[id number] Lr 1,000 ml @ 125 mls/hr IV . 872.650 / 872.650 591.666 / 591.666 189.583 / 189.583 Q8H KENY Rx#:[id number] Oral 520 / 520 300 / 300 Output: Urine 2125 / 2125 700 / 700 04/02/18 Range/Units 17:05 Random Gentamicin 1.00 mcg/ml PE: General: Alert, orientedx3, NAD Abd: soft, NT, ND Ext; NT, no edema AP: 42 yo s/p Hysteroscopy, Shirley EA on 03/31/18, admitted for acute endometritis On IV AB, Amp+ Gnet+ Clinda, 6 am Amp dose was missed, being given now VSS Afebrile since yesterday afternnon, doing well Continue to monitor All questions were answered D/C home tomorrow Physical Exam 2 Vital Signs (Past 24 Hours): Last Vital Signs Temp 37 C 04/03/18 07:15 Pulse 87 04/03/18 07:15 Resp 20 04/03/18 07:15 BP 116/74 04/03/18 07:15 Pulse Ox 95 04/03/18 07:15
[2018-04-03] MEDS: ACETAMINOPHEN 325 MG TAB PO PRN (11:25)
[2018-04-03] MEDS: METOCLOPRAMIDE HCL INJ 5 MG/ML 2 ML VIAL IV PRN (11:51)
--- NOTE | 2018-04-03 13:19 | Gynecologic Progress Note ---
Date of Service April 03, 2018 Assessment & Plan (1) Acute endometritis: 42 yo s/p EA on 03/31/18 now with fever/ chills/ elevated WBC Admitted for endometritis Currently on IV Antibiotics Continue IV antibiotics until afebrile x 24 hours then possible transition to oral antibiotics CBC with diff ordered and results pending Pt with continued temperatures on antibiotics. Blood cultures: NGTD. If temperatures continue will consult ID and possible imaging with CT Abd/Pelvis All questions were answered Subjective Pt with fevers this morning and afternoon. Pt reports a headache this morning ( which is a chronic problem) and intermittent pelvic cramps. Pt states with fevers she is dizzy and overall does not feel well. Tolerating regular diet. Ambulating and urinating without difficulty. Physical Exam 2 Vital Signs (Past 24 Hours): Last Vital Signs Temp 39.2 C H 04/03/18 12:32 Pulse 87 04/03/18 07:15 Resp 20 04/03/18 07:15 BP 116/74 04/03/18 07:15 Pulse Ox 95 04/03/18 07:15 Respiratory: normal respiratory effort, lungs clear to auscultation Cardiovascular: RRR, no murmur, no edema Gastrointestinal (Abdomen): Percussion/Palpation: + abdomen tender ( appropriately tender to palpation) and abdomen soft
[2018-04-03 13:28] LABS: Basophils # (auto) 0.01 K/uL (0-0.2); Basophils % (auto) 0.1 %; Eosinophils # (auto) 0.01 K/uL (0-0.5); Eosinophils % (auto) 0.1 %; Hemoglobin 12.4 g/dL (12.0-16.0); Immature Granulocytes # (auto) 0.02 K/uL (0.00-0.02); Immature Granulocytes % (auto) 0.3 %; Lymphocytes # (auto) 0.41 K/uL (1.2-3.4); Lymphocytes % (auto) 5.6 %; Mean Corpuscular Hgb Conc 33.5 g/dL (32-36); Mean Corpuscular Volume 94.4 fL (80-100); Mean Platelet Volume 9.6 fL (7.4-10.4); Monocytes # (auto) 0.79 K/uL (0.11-0.59); Monocytes % (auto) 10.9 %; Neutrophils # (auto) 6.04 K/uL (1.4-6.5); Platelet Count 125 K/uL (130-400); RDW Coefficient of Variation 12.6 % (11.5-14.5); RDW Standard Deviation 43.7 fL (36.4-46.3); Red Blood Count 3.92 M/uL (4.2-5.4); White Blood Count 7.28 K/uL (4.8-10.8)
[2018-04-03] MEDS ORDERED: OPTIRAY 320 125ml IV PRN (16:24)
--- NOTE | 2018-04-03 16:39 | CT Scan Report ---
CT SCAN OF THE ABDOMEN AND PELVIS WITH IV CONTRAST CLINICAL HISTORY: Endometritis status post endometrial ablation. COMPARISON STUDY: No priors. TECHNIQUE: Following the IV administration of 115 cc of Optiray 320, CT scan of the abdomen and pelv is is performed from the lung bases to the proximal femora. Images are reviewed in the axial, sagitta l, and coronal planes. IV contrast was administered without complication. A dose lowering technique w as utilized adhering to the principles of ALARA. CT DOSE: 858.24 mGy.cm FINDINGS: Lung bases: The heart is normal in size and without pericardial effusion. There are trace pleural eff usions with dependent atelectasis. Liver: The contrast-enhanced liver is normal in size, contour, and attenuation. There is no intrahepa tic biliary ductal dilatation. The hepatic veins and portal veins are patent. Gallbladder: Unremarkable. Spleen: Normal in size and attenuation. Pancreas: Unremarkable. Adrenal glands: Unremarkable. Kidneys: The contrast enhanced kidneys are normal in size and without hydronephrosis. The kidneys enh ance symmetrically. Abdominal vasculature: The abdominal aorta is normal in course and caliber. Bowel: The small bowel and colon are normal in course and caliber. The appendix is well-visualized a nd normal. Peritoneum: There is no intraperitoneal free air or abdominal ascites. There is a fat-containing umbi lical hernia. Lymphadenopathy: None. Pelvic viscera: The bladder is normal as visualized. No adnexal lesion is seen. Ovarian follicles are noted. There is low-attenuation material filling the endometrial telephone the region. This measures up to 3 cm in thickness. No gas is identified within the endometrial canal. There is trace free flui d in the cul-de-sac. Skeletal structures: There are bilateral pars defects at L5 with 8 mm anterolisthesis and advanced di sc space narrowing at L5-S1. No lytic or blastic lesions are seen. IMPRESSION: 1. The endometrial canal is distended and filled with low-attenuation material. This is nonspecific, and may represent postoperative change/blood products. Endometritis is not excluded end clinical alexander elation will be required. There is no gas within the endometrial canal. 2. There is trace nonspecific free fluid in the cul-de-sac. No organized fluid collection is identifi ed. 3. Trace pleural effusions. 4. Additional findings as above. Electronically signed by: Mayco Schuler M.D. 04/03/2018 4:38 PM
[2018-04-04] MEDS: AMPICILLIN 1,000 MG in SODIUM CHLOR 0.9% AD-VAN 50 ML IV SCH ×3 (01:12→09:16)
[2018-04-04] MEDS: CLINDAMYCIN 900 MG in DEXTROSE 5% 100 ML IV SCH ×2 (02:16→10:05)
[2018-04-04] MEDS: IBUPROFEN 600 MG TAB PO PRN (02:19)
[2018-04-04 05:04] LABS: Basophils # (auto) 0.01 K/uL (0-0.2); Basophils % (auto) 0.2 %; Eosinophils # (auto) 0.05 K/uL (0-0.5); Hematocrit (blood only) 35.9 % (37-47); Lymphocytes # (auto) 1.33 K/uL (1.2-3.4); Lymphocytes % (auto) 26.8 %; Mean Corpuscular Hgb Conc 33.4 g/dL (32-36); Mean Corpuscular Volume 94.5 fL (80-100); Mean Platelet Volume 9.9 fL (7.4-10.4); Monocytes # (auto) 0.61 K/uL (0.11-0.59); Monocytes % (auto) 12.3 %; Neutrophils # (auto) 2.97 K/uL (1.4-6.5); Neutrophils % (auto) 59.7 %; Platelet Count 128 K/uL (130-400); RDW Coefficient of Variation 12.8 % (11.5-14.5); RDW Standard Deviation 44.2 fL (36.4-46.3); White Blood Count 4.97 K/uL (4.8-10.8)
[2018-04-04 05:31] LABS: Creatinine Clr Calc Pharmacy 136.7 ml/min; Est GFR (African American) 130.5; Est GFR (Non-African American) 112.6
[2018-04-04] MEDS: GENTAMICIN SULFATE 360 MG in DEXTROSE 5% 100 ML IV SCH (06:03)
--- NOTE | 2018-04-04 08:51 | Pharmacy Report ---
Pharmacy Abx Dose Short Note - Date of Service April 04, 2018 - Assessment & Plan Assessment 42 year old F on gentamicin, ampicillin, and clindamycin IV for acute endometritis. Patient s/p endometrial ablation on 03/31/18. Pharmacy was consulted for gentamicin dosing. * Day # 3 of antimicrobial therapy * Fever improving; afebrile since 04/03 @ 1343 * 2/2 reported no growth to date Plan Gentamicin * Currently on 360 mg IV q24h * Random level was drawn ~ 10 hours after the first dose and was applied to the [place] [facility] Nomogram * level resulted at 1 mcg/mL * indicates that q24h dosing is appropriate for patient * continue dose of 360 mg (5 mg/kg based on AdjBW) IV q24h * No further levels are needed unless significant change in clinical status/ renal function is noted Pharmacy will continue to follow and will adjust dose/frequency as necessary. Thank you.
--- NOTE | 2018-04-04 10:42 | Surgery Progress Note ---
Date of Service April 04, 2018 Subjective feeling better passing gas tolerating diet ambulatory afebrile for 24 hours Physical Exam 2 Vital Signs (Past 24 Hours): Last Vital Signs Temp 36.5 C 04/04/18 07:50 Pulse 66 04/04/18 07:50 Resp 18 04/04/18 07:50 BP 101/65 04/04/18 07:50 Pulse Ox 99 04/04/18 07:50 Constitutional: WD/WN, vitals as above comfortable Skin: no rashes, warm and dry abdomen is soft non-tender neg Homnan's sign Results & Data Laboratory Results 04/02/18 04/02/18 04/02/18 00:22 00:48 00:50 WBC 13.87 H RBC 4.36 Hgb 14.1 Hct 41.8 MCV 95.9 MCH 32.3 MCHC 33.7 RDW Std Deviation 43.9 RDW Coeff of Michael 12.5 Plt Count 193 MPV 9.5 Immature Gran % (Auto) 0.4 Neut % (Auto) 83.1 Lymph % (Auto) 7.0 Winston % (Auto) 9.0 Eos % (Auto) 0.4 Baso % (Auto) 0.1 Immature Gran # (Auto) 0.05 H Neut # (Auto) 11.53 H Lymph # (Auto) 0.97 L Winston # (Auto) 1.25 H Eos # (Auto) 0.06 Baso # (Auto) 0.01 PT INR APTT PTT Ratio Sodium Potassium Chloride Carbon Dioxide Anion Gap BUN Creatinine Est Cr Clr Drug Dosing Est GFR ( Amer) Est GFR (Non-Af Amer) BUN/Creatinine Ratio Glucose Lactate Calcium Total Bilirubin AST ALT Alkaline Phosphatase Total Protein Albumin Globulin Albumin/Globulin Ratio Lipase Urine Color Yellow Urine Appearance Cloudy H Urine pH 8.0 H Ur Specific [place] 1.019 Urine Protein Negative Urine Glucose (UA) Negative Urine Ketones Negative Urine Blood 1+ H Urine Nitrite Negative Urine Bilirubin Negative Urine Urobilinogen Negative Ur Leukocyte Esterase Negative Urine WBC (Auto) 1-5 Urine RBC (Auto) 5-10 H U Hyaline Cast (Auto) 0 U Epithel Cells (Auto) >30 H Urine Bacteria (Auto) Negative Random Gentamicin Influenza Type A Ag Neg for Influ A Influenza Type B Ag Neg for Influ B 04/02/18 04/02/18 04/02/18 00:50 00:50 00:50 WBC RBC Hgb Hct MCV MCH MCHC RDW Std Deviation RDW Coeff of Michael Plt Count MPV Immature Gran % (Auto) Neut % (Auto) Lymph % (Auto) Winston % (Auto) Eos % (Auto) Baso % (Auto) Immature Gran # (Auto) Neut # (Auto) Lymph # (Auto) Winston # (Auto) Eos # (Auto) Baso # (Auto) PT 10.4 INR 1.0 APTT 25.2 PTT Ratio 1.0 Sodium 137 Potassium 3.8 Chloride 105 Carbon Dioxide 23 Anion Gap 8.0 BUN 8 Creatinine 0.80 Est Cr Clr Drug Dosing 104.2 Est GFR ( Amer) 106.1 Est GFR (Non-Af Amer) 91.6 BUN/Creatinine Ratio 10.2 Glucose 108 H Lactate 2.2 H* Calcium 9.2 Total Bilirubin 0.4 AST 18 ALT 32 Alkaline Phosphatase 53 Total Protein 7.9 Albumin 3.9 Globulin 4.0 Albumin/Globulin Ratio 1.0 Lipase 87 Urine Color Urine Appearance Urine pH Ur Specific [place] Urine Protein Urine Glucose (UA) Urine Ketones Urine Blood Urine Nitrite Urine Bilirubin Urine Urobilinogen Ur Leukocyte Esterase Urine WBC (Auto) Urine RBC (Auto) U Hyaline Cast (Auto) U Epithel Cells (Auto) Urine Bacteria (Auto) Random Gentamicin Influenza Type A Ag Influenza Type B Ag 04/02/18 04/02/18 04/03/18 02:51 17:05 13:13 WBC 7.28 RBC 3.92 L Hgb 12.4 Hct 37.0 MCV 94.4 MCH 31.6 MCHC 33.5 RDW Std Deviation 43.7 RDW Coeff of Michael 12.6 Plt Count 125 L MPV 9.6 Immature Gran % (Auto) 0.3 Neut % (Auto) 83.0 Lymph % (Auto) 5.6 Winston % (Auto) 10.9 Eos % (Auto) 0.1 Baso % (Auto) 0.1 Immature Gran # (Auto) 0.02 Neut # (Auto) 6.04 Lymph # (Auto) 0.41 L Winston # (Auto) 0.79 H Eos # (Auto) 0.01 Baso # (Auto) 0.01 PT INR APTT PTT Ratio Sodium Potassium Chloride Carbon Dioxide Anion Gap BUN Creatinine Est Cr Clr Drug Dosing Est GFR ( Amer) Est GFR (Non-Af Amer) BUN/Creatinine Ratio Glucose Lactate 1.1 Calcium Total Bilirubin AST ALT Alkaline Phosphatase Total Protein Albumin Globulin Albumin/Globulin Ratio Lipase Urine Color Urine Appearance Urine pH Ur Specific [place] Urine Protein Urine Glucose (UA) Urine Ketones Urine Blood Urine Nitrite Urine Bilirubin Urine Urobilinogen Ur Leukocyte Esterase Urine WBC (Auto) Urine RBC (Auto) U Hyaline Cast (Auto) U Epithel Cells (Auto) Urine Bacteria (Auto) Random Gentamicin 1.00 Influenza Type A Ag Influenza Type B Ag 04/04/18 04/04/18 04:37 04:37 WBC 4.97 RBC 3.80 L Hgb 12.0 Hct 35.9 L MCV 94.5 MCH 31.6 MCHC 33.4 RDW Std Deviation 44.2 RDW Coeff of Michael 12.8 Plt Count 128 L MPV 9.9 Immature Gran % (Auto) 0.0 Neut % (Auto) 59.7 Lymph % (Auto) 26.8 Winston % (Auto) 12.3 Eos % (Auto) 1.0 Baso % (Auto) 0.2 Immature Gran # (Auto) 0.00 Neut # (Auto) 2.97 Lymph # (Auto) 1.33 Winston # (Auto) 0.61 H Eos # (Auto) 0.05 Baso # (Auto) 0.01 PT INR APTT PTT Ratio Sodium Potassium Chloride Carbon Dioxide Anion Gap BUN Creatinine 0.61 Est Cr Clr Drug Dosing 136.7 Est GFR ( Amer) 130.5 Est GFR (Non-Af Amer) 112.6 BUN/Creatinine Ratio Glucose Lactate Calcium Total Bilirubin AST ALT Alkaline Phosphatase Total Protein Albumin Globulin Albumin/Globulin Ratio Lipase Urine Color Urine Appearance Urine pH Ur Specific [place] Urine Protein Urine Glucose (UA) Urine Ketones Urine Blood Urine Nitrite Urine Bilirubin Urine Urobilinogen Ur Leukocyte Esterase Urine WBC (Auto) Urine RBC (Auto) U Hyaline Cast (Auto) U Epithel Cells (Auto) Urine Bacteria (Auto) Random Gentamicin Influenza Type A Ag Influenza Type B Ag Diagnostic Findings All Values Will d/c home on PO antibiotics
--- NOTE | 2018-04-04 20:14 | Discharge Summary ---
CHIEF COMPLAINT: Elevated temperatures. HISTORY OF PRESENT ILLNESS: The patient is a 42-year-old female status post an endometrial ablation on 03/31/2018 who was discharged on the same day with no complications. The patient reported on the evening of 04/01/2018 around 7:00 p.m., fevers and chills. The patient presented to the [facility] Emergency Department and was noted to have elevated temperatures and a white blood cell count of 13. The patient was then subsequently admitted with a diagnosis of acute endometritis. The patient was started on I.V. antibiotics. Blood cultures were drawn and noted to eventually be no growth to date. PAST MEDICAL HISTORY: 1. Exercise induced asthma. 2. Generalized anxiety disorder. 3. Tobacco abuse disorder. PAST SURGICAL HISTORY: 1. Diagnostic hysteroscopy and NovaSure endometrial ablation. 2. Diagnostic colonoscopy. 3. Flexible esophagogastroduodenoscopy. 4. Removal of tonsils at age 13. 5. Laparoscopic bilateral salpingectomy, intrauterine device removal and diagnostic hysteroscopy. SOCIAL HISTORY: The patient is . The patient is a current smoker. Occasional alcohol use. Denies illicit drug use. FAMILY HISTORY: Father with cancer. Paternal grandmother with chronic obstructive pulmonary disease. Maternal grandmother with pulmonary fibrosis. Paternal grandfather with lung cancer. ALLERGIES: 1. CODEINE. 2. FOOD ALLERGIES TO PINEAPPLE, GRAPES AND WHEAT. 3. VICODIN. REVIEW OF SYSTEMS: CONSTITUTIONAL: Fevers resolved with last temperature on 04/03/2018 at 12:32 p.m. CARDIOVASCULAR: Negative. No chest pain, dyspnea, syncope or palpitations. PULMONARY: Negative. No cough, wheezing or shortness of breath. GASTROINTESTINAL: Negative. No pain, heartburn, dysphagia, bleeding or change in bowel habits. Nausea had improved with Zofran. GENITOURINARY: Female. Negative vaginal bleeding. Occasional intermittent, crampy pelvic pain. PHYSICAL EXAMINATION: GENERAL: In no acute distress. LUNGS: Clear to auscultation bilaterally. HEART: Regular rate and rhythm. ABDOMEN: Soft. Appropriately tender to palpation in the lower pelvis. Normal bowel sounds. No masses or organomegaly. LABORATORY DATA: On 04/04/2018, WBC 4.97, hemoglobin and hematocrit of 12 and 35.9 respectively and platelets 128. VITAL SIGNS: On 04/04/2018, blood pressure 101/65, pulse 66, respiratory rate 18, temperature 36.5 degrees Celsius and oxygen saturation was 99% on room air. CONDITION ON DISCHARGE: Stable. DISCHARGE DIAGNOSIS: Acute endometritis. PLAN ON DISCHARGE: The patient was discharged after afebrile x24 hours. The patient while admitted received I.V. antibiotics which included ampicillin, clindamycin and gentamicin. The patient also had decreasing white blood cell count from 13 to 4.97. No growth to date of blood cultures. CT of abdomen and pelvis was consistent with postoperative changes noted from surgery on , 03/31/2018. The patient was provided discharge instructions regarding activity, diet, followup appointments and medications. Antibiotics were e-prescribed to the patient's pharmacy. The patient is to follow up with [facility] in the next 1-2 weeks.
== END 2018-04-04 13:16 | disposition home or self-care (01) | DRG 759 ==
LOC: ED 23:47 → 4N 04-02 04:02